=== PATIENT | male | born 1970 | race African-American/Black ===

== ENCOUNTER 2018-04-09 16:04 | Emergency (ER) | payer BC ==
--- NOTE | 2018-04-09 17:07 | ED ---
Laceration/Wound HPI - HPI Summary HPI Summary: 47 year old male presents for stitches removal from his left thumb. He had stitches placed 10 days ago. He denies any drainage from the wound. He denies any fevers or chills. He denies any signs of infection. has been placing josiane on the area. - History of Current Complaint Stated Complaint: STITCHES REMOVED Time Seen by Provider: 04/09/18 17:01 Pain Intensity: 0 - Allergy/Home Medications Allergies/Adverse Reactions: Allergies Allergy/AdvReac Type Severity Reaction Status Date / Time No Known Allergies Allergy Verified 03/30/18 19:45 PMH/Surg Hx/FS Hx/Imm Hx Endocrine/Hematology History: Denies: Hx Anticoagulant Therapy, Hx Blood Disorders Cardiovascular History: Denies: Hx Myocardial Infarction Infectious Disease History: No Infectious Disease History: Denies: Hx of Known/Suspected MRSA, Traveled Outside the in Last 30 Days - Family History Known Family History: Positive: Hypertension - Social History Alcohol Use: Occasionally Hx Substance Use: No Substance Use Type: Reports: None Hx Tobacco Use: Yes Smoking Status (MU): Current Every Day Smoker Review of Systems Negative: Fever Negative: Chest Pain Negative: Shortness Of Breath Positive: Other - suture removal All Other Systems Reviewed And Are Negative: Yes Physical Exam Triage Information Reviewed: Yes Vital Signs On Initial Exam: Initial Vitals Temp Pulse Resp BP Pulse Ox 99.0 F 70 19 112/63 99 04/09/18 16:36 04/09/18 16:36 04/09/18 16:36 04/09/18 16:36 04/09/18 16:36 Vital Signs Reviewed: Yes Appearance: Positive: Well-Appearing Skin: Positive: Warm, Dry, Other - [address] over healing wound on left thumb mcp that is 4cm in length Head/Face: Positive: Normal Head/Face Inspection Eyes: Positive: Normal, Conjunctiva Clear ENT: Positive: Pharynx normal Respiratory/Lung Sounds: Positive: Clear to Auscultation, Breath Sounds Present Cardiovascular: Positive: Normal, RRR Musculoskeletal: Positive: Normal Neurological: Positive: Normal Psychiatric: Positive: Normal Diagnostics - Vital Signs Vital Signs Temp Pulse Resp BP Pulse Ox 04/09/18 16:36 99.0 F 70 19 112/63 99 - Laboratory Lab Statement: Any lab studies that have been ordered have been reviewed, and results considered in the medical decision making process. Laceration Repair Course/Dx - Course Course Of Treatment: 47 year old male presents for stitches removal from his left thumb. He had stitches placed 10 days ago. He denies any drainage from the wound. He denies any fevers or chills. He denies any signs of infection. has been placing josiane on the area. On exam has [address] on healing wound over at MCP. No evidence of dehiscence. removed Sutures. Told to keep area clean. Patient understands and agrees with plan. - Differential Dx Differental Diagnoses: Cellulitis, Dehiscence, Healing Wound - Clinical Impression Provider Diagnoses: Encounter for removal of sutures Discharge - Sign-Out/Discharge Documenting (check all that apply): Patient Departure - Discharge Plan Condition: Good Disposition: HOME Patient Education Materials: Stitches Removal (ED) Referrals: No Primary Care Phys,NOPCP [Primary Care Provider] - Additional Instructions: watch for any signs of infection can apply neosporin to the area Return to ED if develop any new or worsening symptoms - Billing Disposition and Condition Condition: GOOD Disposition: Home
[2018-04-09 17:31] VITALS: BP 109/65
== END 2018-04-09 17:30 | disposition home or self-care (01) ==
LOC: ED 16:04
DX: S61.012D Laceration without foreign body of left thumb without damage to nail, subsequent encounter (principal); X58.XXXD Exposure to other specified factors, subsequent encounter; F17.200 Nicotine dependence, unspecified, uncomplicated
CPT/HCPCS: 99281

== ENCOUNTER 2019-07-20 09:49 | Emergency (ER) | payer SELFPAY ==
--- NOTE | 2019-07-20 10:28 | ED ---
Upper Extremity Pain - HPI Summary HPI Summary: Patient is a 48 y/o L handed M presenting to the ED for chief complaint of left wrist pain. Patient states that he was lifting file cabinets one week ago at work after which he had left wrist pain that radiated to the left arm. He also notes intermittent numbness and paresthesia in the left thumb. He describes the pain as a burning sensation. Patient denies neck or shoulder pain. PMHx is significant for seizures in his childhood. - History of Current Complaint Chief Complaint: EDExtremityUpper Stated Complaint: LEFT ARM PAIN PER PT Time Seen by Provider: 07/20/19 09:59 Hx Obtained From: Patient Mechanism Of Injury: Other - Heavy lifting Onset/Duration: Started Days Ago, Atraumatic, Still Present Timing: Constant Severity Initially: Moderate Severity Currently: Moderate Pain Location: Wrist - Left Character: Unable to Describe Aggravating Factor(s): Movement Alleviating Factor(s): Nothing Associated Signs & Symptoms: Positive: Numbness/Tingling - Left thumb. Negative : Neck Pain Related History: Occupational Injury, Dominant Hand Left - Allergies/Home Medications Allergies/Adverse Reactions: Allergies Allergy/AdvReac Type Severity Reaction Status Date / Time No Known Allergies Allergy Verified 03/30/18 19:45 PMH/Surg Hx/FS Hx/Imm Hx Previously Healthy: Yes Endocrine/Hematology History: Denies: Hx Anticoagulant Therapy, Hx Blood Disorders, Hx Diabetes Cardiovascular History: Denies: Hx Myocardial Infarction Sensory History: Denies: Hx Legally Blind, Hx Deafness Opthamlomology History: Denies: Hx Legally Blind EENT History: Denies: Hx Deafness Neurological History: Reports: Hx Seizures - Childhood - Surgical History Surgical History: None Surgery Procedure, Year, and Place: None Infectious Disease History: No Infectious Disease History: Denies: Hx of Known/Suspected MRSA, Traveled Outside the [place] in Last 30 Days - Family History Known Family History: Positive: Hypertension - Social History Occupation: Employed Full-time Lives: With Family Alcohol Use: Occasionally Hx Substance Use: No Substance Use Type: Reports: None Hx Tobacco Use: Yes Smoking Status (MU): Current Every Day Smoker Review of Systems Negative: Abdominal Pain Positive: Arthralgia - Left wrist that radiates to the left arm. Negative: Myalgia - Neck pain Positive: Paresthesia - Left thumb, Numbness - Left thumb All Other Systems Reviewed And Are Negative: Yes Physical Exam - Summary Physical Exam Summary: General: Well appearing, no distress HEENT: PERRL Cardiovascular: Skin is well perfused Pulmonary: No respiratory distress, no tachypnea Abdomen: Non-distended Skin: Warm, pink, dry MSK: No edema. Tenderness of the volar surface of the forearm and left palm L Hand PE Motor: Opposition of thumb and first finger intact Able to cross first and second finger Able to extend thumb Able to flex and extend wrist Able to spread fingers Sensory: Sensation intact in 1st, 2nd, and 5th digits Pulse: 2+ radial pulse intact. Brisk cap refill. Psych: Normal affect Neuro: A&Ox3 Triage Information Reviewed: Yes Vital Signs On Initial Exam: Initial Vitals Temp Pulse Resp BP Pulse Ox 96.9 F 91 18 156/73 99 07/20/19 09:54 07/20/19 09:54 07/20/19 09:54 07/20/19 09:54 07/20/19 09:54 Vital Signs Reviewed: Yes Procedures - Sedation Patient Received Moderate/Deep Sedation with Procedure: No Diagnostics - Vital Signs Vital Signs Temp Pulse Resp BP Pulse Ox 07/20/19 10:05 81 99 07/20/19 10:04 81 114/68 99 07/20/19 09:54 96.9 F 91 18 156/73 99 - Laboratory Lab Statement: Any lab studies that have been ordered have been reviewed, and results considered in the medical decision making process. Course/Dx - Course Course Of Treatment: 48 y/o L handed male p/w acute wrist pain and setting overuse injury. Tenderness along the ED and aspect of the volar wrist. Intermittent paresthesias of the thenar eminence and left thumb. No neck pain. Suspect secondary to overuse injury. Patient was given wrist splint and NSAIDs. Advised to follow-up with orthopedics if pain persists - Diagnoses Provider Diagnoses: Wrist pain Discharge ED - Sign-Out/Discharge Documenting (check all that apply): Patient Departure - Discharge - Discharge Plan Condition: Stable Disposition: HOME Prescriptions: Ibuprofen TAB* [Motrin TAB* 800 MG] 800 mg PO TID PRN 10 Days #30 tab PRN Reason: Pain - Moderate Ibuprofen TAB* [Motrin TAB* 800 MG] 800 mg PO Q6H 10 Days #30 tab Patient Education Materials: Wrist Injury (ED), Paresthesia (ED) Referrals: [facility] [Outside] Stella Pozo MD [Medical Doctor] - Additional Instructions: You were seen in the emergency department for wrist pain. You likely have an overuse injury. Use the splint for comfort, take Motrin 800 mg as needed every 8 hours for pain. Please follow up with your primary care doctor in next 2-3 days and return to emergency department for worsening pain, weakness of the hand/wrist, or concerning symptoms. Follow up with orthopedics if you have persistent pain greater than several weeks. It was a pleasure taking care of you today. - Billing Disposition and Condition Condition: STABLE Disposition: Home - Attestation Statements Document Initiated by Ines: Yes Documenting Scribe: Suri Moya Provider For Whom Ines is Documenting (Include Credential): Chela Arevalo MD Scribe Attestation: ISuri, scribed for Chela Arevalo MD on 07/20/19 at 1049. Scribe Documentation Reviewed: Yes Provider Attestation: The documentation as recorded by the Suri cat accurately reflects the service I personally performed and the decisions made by , Chela Arevalo MD Status of Scribe Document: Viewed
[2019-07-20 11:08] VITALS: BP 122/99
== END 2019-07-20 11:06 | disposition home or self-care (01) ==
LOC: ED 09:49
DX: M25.532 Pain in left wrist (principal); X50.0XXA Overexertion from strenuous movement or load, initial encounter; Y92.89 Other specified places as the place of occurrence of the external cause; Y99.0 Civilian activity done for income or pay; F17.200 Nicotine dependence, unspecified, uncomplicated
CPT/HCPCS: 99282